=== PATIENT | female | born 1975 | race Caucasian/White ===

== ENCOUNTER 2019-09-24 08:33 | Outpatient (CLI) | payer OTHER, SELFPAY ==
--- NOTE | 2019-09-24 | US_ITS ---
WS: [id number] THYROID ULTRASOUND HISTORY: THYROID CYST COMPARISON: 03/17/2019 and 11/09/2014 Right lobe: 4. cm x 1.3 cm x 1.3 cm. Volume: 3.7 cm3. Normal size gland. Several hypoechoic nodules are identified. The largest measures 4 x 2 mm with slig ht increase in size since the prior study. No dominant or suspicious masses. Left lobe: 4.4 cm x 1.4 cm x 1.1 cm. Volume: 3.3 cm3. Normal size gland. Cystic nodule in the gland. Nodule appears to be in the mid gland. The exact locat ion cannot be determined on the imaging submitted as labeled. This nodule measures 7 mm. No increase in size since the prior study. Isthmus: 2.2 mm. US/US thyroid [id number] IMPRESSION: 1. Bilateral benign-appearing thyroid nodules. No suspicious solid nodule. 2. No thyromegaly.
== END 2019-09-24 08:34 | disposition home or self-care (01) ==
LOC: RADOUTREAD 11:49
PROVIDERS: Family Provider Family Medicine; Visit Provider Family Medicine
DX: E04.2 Nontoxic multinodular goiter (principal)

== ENCOUNTER → 2024-07-28 06:01 | Outpatient (CLI) | payer OTHER, SELFPAY ==
--- NOTE | 2024-08-25 08:45 | MR_ITS ---
WS: [id number] MRI HEAD WITH CONTRAST TECHNIQUE: Sagittal T1, T2 axial, T2 axial FLAIR, axial susceptibility weighted imaging, axial diffus ion weighted images, and coronal T2 images were obtained. Pre and post-T1 axial and post T1 coronal i mages. ADC and FSPGR images. CLINICAL INFORMATION: G40.219 - Localization-related (focal) (partial) symptoma... COMPARISON: None. FINDINGS: No evidence of restricted diffusion to suggest acute ischemia. Ventricular system and basal cisterns are patent. No hemosiderin on susceptibility-weighted images. Normal optic chiasm and pitui tary infundibulum. Temporal lobes hippocampal formations are normal in appearance. No evidence of mes ial temporal sclerosis. No signal abnormalities in the mesial temporal lobes. Normal cavernous sinuse s and Meckel's cave. Proximal 7th and 8th cranial nerves appear normal. Normal posterior fossa. Normal vascular flow voids at the skull base. No extra-axial fluid collection s. No evidence of mass or mass effect. Paranasal sinuses and mastoid air cells are well aerated. Norm al posterior nasopharynx. No abnormal gadolinium enhancement. Normal dural venous sinuses. MR/MR head wo/w con [id number] IMPRESSION: 1. No evidence of restricted diffusion to suggest acute ischemia. 2. No suspicious intracranial signal abnormalities 3. Temporal lobes and hippocampal formations are normal in appearance. No evid ence of mesial temporal sclerosis. No abnormalities in the mesial temporal lobe s. 4. No abnormal gadolinium enhancement. 5. No hemosiderin on the susceptibly weighted images.
== END | disposition home or self-care (01) ==
LOC: RAD 08-13 09:29
PROVIDERS: Family Provider Family Medicine; Visit Provider Psychiatry & Neurology Neurology
DX: G40.219 Localization-related (focal) (partial) symptomatic epilepsy and epileptic syndromes with complex partial seizures, intractable, without status epilepticus (principal)
CPT/HCPCS: 70553

== ENCOUNTER 2024-08-25 08:52 | Outpatient (CLI) | payer OTHER, SELFPAY | END 2024-08-25 08:53 | disposition home or self-care (01) | LOC: RAD 08:52 | PROVIDERS: Family Provider Family Medicine; Visit Provider Psychiatry & Neurology Neurology | DX: G40.909 Epilepsy, unspecified, not intractable, without status epilepticus (principal) | CPT/HCPCS: 36415; 80053; 80156; 82248; 85025 ==

== ENCOUNTER → 2024-12-14 16:50 | Outpatient (BNVA) | payer OTHER, SELFPAY | PROVIDERS: Family Provider Family Medicine; Visit Provider Psychiatry & Neurology Neurology | DX: G40.219 Localization-related (focal) (partial) symptomatic epilepsy and epileptic syndromes with complex partial seizures, intractable, without status epilepticus (principal) | CPT/HCPCS: 36415; 80156 ==